=== PATIENT | male | born 1980 ===

== ENCOUNTER 2021-08-18 16:57 | Emergency (ER) | payer OTHER ==
[2021-08-18] MEDS ORDERED: IBUPROFEN 800 MG TAB PO ONE (21:11)
== END 2021-08-19 19:02 | disposition left against medical advice (07) ==
LOC: ED 16:57
DX: S69.92XA Unspecified injury of left wrist, hand and finger(s), initial encounter (principal); Z53.21 Procedure and treatment not carried out due to patient leaving prior to being seen by health care provider